=== PATIENT | female | born 1990 | race Caucasian/White ===

== ENCOUNTER 2022-01-13 09:14 | Emergency (ER) | payer MEDICAID, OTHER | END 2022-01-13 10:50 | disposition home or self-care (01) | LOC: CSHERS 09:14 | DX: R05.9 Cough, unspecified (principal); I10 Essential (primary) hypertension | CPT/HCPCS: 71045 ==

== ENCOUNTER 2022-01-19 18:00 | Inpatient (IN) | payer OTHER ==
[2022-01-20 05:29] VITALS: BMI 44.6
[2022-01-20] MEDS ORDERED: Lidocaine 1% (PF) 30 ML VIAL SC PRN (05:30)
[2022-01-20] MEDS ORDERED: Butorphanol Tartrate 1 MG/ML VIAL SLOW IVP PRN (05:30)
[2022-01-20] MEDS ORDERED: Ondansetron PF 4 MG/2 ML Vial IVP PRN ×3 (05:30→21:39)
[2022-01-20] MEDS ORDERED: Ibuprofen 800 MG TAB PO PRN (05:30)
[2022-01-20] MEDS ORDERED: Carboprost 250 MCG/ML AMP IM PRN (05:30)
[2022-01-20] MEDS ORDERED: Misoprostol 200 MCG TAB PR PRN (05:30)
[2022-01-20] MEDS ORDERED: Acetaminophen 500 MG TAB PO PRN (05:30)
[2022-01-20] MEDS ORDERED: Diphenoxylate HCl/Atropine Tablet PO PRN (05:30)
[2022-01-20] MEDS ORDERED: Promethazine HCl 25 MG/ML VIAL IM PRN ×3 (05:30→21:39)
[2022-01-20] MEDS ORDERED: hydrALAZINE 20 MG/ML VIAL SLOW IVP PRN ×2 (05:30→21:39)
[2022-01-20] MEDS ORDERED: HYDROcodone/Acetaminophen 5/325 mg Tablet PO PRN ×3 (05:30→21:39)
[2022-01-20] MEDS ORDERED: Methylergonovine 0.2 MG/ML VIAL IM PRN (05:30)
[2022-01-20] MEDS ORDERED: Misoprostol 100 MCG TAB ONE (05:55)
[2022-01-20 05:56] LABS: Hemoglobin 10.6 g/dL (12.0-15.5); Mean Corpuscular HGB CONC 32.6 g/dL (32.0-36.0); Mean Corpuscular Hemoglobin 26.9 pg (27.0-33.0); Mean Corpuscular Volume 82.5 fl (81.6-98.3); Mean Platelet Volume 12.2 fl (7.4-10.4); Platelet Count 177 10x3/uL (150-450); RBC Distribution Width 13.3 % (11.5-14.5); Red Blood Cell (RBC) Count 3.94 10x6/uL (3.90-5.03); White Blood Cell (WBC) Count 13.1 10x3/uL (3.5-10.5)
[2022-01-20] MEDS ORDERED: Misoprostol 100 MCG TAB VAG SCH (06:00)
[2022-01-20] MEDS ORDERED: NS w/ Oxytocin 30 units 500 ML IV SCH ×2 (06:00)
[2022-01-20] MEDS ORDERED: Lactated Ringer's 1,000 ML IV SCH (06:00)
[2022-01-20 06:40] LABS: HBSAg Index 0.22 S/CO (0-0.99); Hep B Surf Ag Non-Reactive S/CO (NonReactive)
[2022-01-20 06:41] LABS: Syphilis Antibody Nonreactive (Nonreactive); Syphilis Antibody Index 0.04 S/CO (<1.00 Non-Reactive)
[2022-01-20 06:41] LABS: SARS-CoV-2 NAA Rapid Test Not Detected (NotDetected)
[2022-01-20] MEDS ORDERED: Bupivacaine HCl 0.5%/Epinephrine 1:200,000/PF 30 ml Vial ONE (08:00)
[2022-01-20] MEDS ORDERED: Bupivacaine 0.25% HCL 30 ML VIAL ONE (08:00)
[2022-01-20] MEDS ORDERED: Fentanyl 2 mcg/Bup 0.1% Cadd 100 ML ONE (13:35)
[2022-01-20] MEDS ORDERED: Fentanyl 2 mcg/Bupivacaine 0.1% Cassette 100 ML EPIDURAL SCH (14:30)
[2022-01-20] MEDS ORDERED: ePHEDrine Sulfate 50 MG/10 ML VIAL SLOW IVP PRN (14:30)
[2022-01-20] MEDS ORDERED: Acetaminophen 325 MG TAB PO PRN (14:30)
[2022-01-20] MEDS ORDERED: diphenhydrAMINE 50 MG/ML VIAL IVP PRN (14:30)
[2022-01-20] MEDS ORDERED: Naloxone HCl 0.4 mg/ml Vial IVP PRN ×2 (14:30)
[2022-01-20] MEDS ORDERED: Moisturizing Cream (Eucerin) 113 GM JAR TOP PRN (14:30)
[2022-01-20] MEDS ORDERED: Communication Order-Pharmacy FS SCH (14:30)
[2022-01-20] MEDS ORDERED: Lactated Ringer's 500 ML IV PRN (14:38)
[2022-01-20 20:12] LABS: ALT (SGPT) 17 U/L (8-55); AST (SGOT) 18 U/L (5-34); Alkaline Phosphatase 168 U/L (40-110); Anion Gap 13 mmol/L (10-20); BUN (Urea Nitrogen) 10 mg/dL (7.0-18.7); Bilirubin, Total 0.5 mg/dL (0.2-1.2); Calc. Creatinine Clearance 263 mL/min (70-130); Calcium 8.8 mg/dL (7.8-10.44); Carbon Dioxide 19 mmol/L (22-29); Chloride 107 mmol/L (98-107); Estimated GFR 121; Glucose 87 mg/dL (70-105); Potassium 3.9 mmol/L (3.5-5.1); Sodium 135 mmol/L (136-145)
[2022-01-20] MEDS ORDERED: Boostrix 0.5 ML (Tdap) VIAL (>/=7 yrs of age) IM ONE (21:39)
[2022-01-20] MEDS ORDERED: Bisacodyl 10 MG SUPP PR PRN (21:39)
[2022-01-20] MEDS ORDERED: diphenhydrAMINE 25 MG CAP PO PRN (21:39)
[2022-01-20] MEDS ORDERED: Preparation H Ointment 28 GM TUBE PR PRN (21:39)
[2022-01-20] MEDS ORDERED: Milk Of Magnesia 30 ML UDCUP PO PRN (21:39)
[2022-01-20] MEDS ORDERED: Benzocaine-Menthol 82.5 ML CAN TOP PRN (21:39)
[2022-01-20] MEDS ORDERED: Lanolin Ointment 7 GM TUBE TOP PRN (21:39)
[2022-01-20] MEDS ORDERED: Docusate 100 MG CAP PO SCH (21:45)
[2022-01-20] MEDS: Ibuprofen 800 MG TAB PO SCH (22:03)
[2022-01-21] MEDS: Ibuprofen 800 MG TAB PO SCH ×3 (06:45→21:52)
[2022-01-21] MEDS: Ferrous Sulfate 325 MG TAB PO SCH ×2 (08:10→16:31)
[2022-01-21] MEDS: Docusate 100 MG CAP PO SCH ×2 (08:51→21:52)
[2022-01-21] MEDS: Prenatal Vitamin 1 TAB PO SCH (08:51)
[2022-01-22] MEDS: Ibuprofen 800 MG TAB PO SCH ×2 (06:13→13:59)
[2022-01-22] MEDS: Ferrous Sulfate 325 MG TAB PO SCH (08:20)
[2022-01-22] MEDS: Prenatal Vitamin 1 TAB PO SCH (10:14)
[2022-01-22] MEDS: Docusate 100 MG CAP PO SCH (10:14)
[2022-01-22 10:56] VITALS: BP 130/77; TEMP 98.2
== END 2022-01-22 15:20 | disposition home or self-care (01) | DRG 807 ==
LOC: CSHLD 01-20 04:56 → CSHPED 01-20 20:40
PROVIDERS: ADMIT Student in an Organized Health Care Education/Training Program; ATTEND Student in an Organized Health Care Education/Training Program
PROC: 10E0XZZ Delivery of Products of Conception, External Approach (ICD-10-PCS; principal; 2022-01-20)
PROC: 10907ZC Drainage of Amniotic Fluid, Therapeutic from Products of Conception, Via Natural or Artificial Opening (ICD-10-PCS; 2022-01-20)
DX: O13.4 Gestational [pregnancy-induced] hypertension without significant proteinuria, complicating childbirth (principal); Z37.0 Single live birth; Z3A.38 38 weeks gestation of pregnancy; Z20.822 Contact with and (suspected) exposure to COVID-19; E66.9 Obesity, unspecified; O99.214 Obesity complicating childbirth; Z79.82 Long term (current) use of aspirin; Z90.49 Acquired absence of other specified parts of digestive tract
CPT/HCPCS: 36415; 51702; 80053; 85027; 86780; 86850; 86900; 86901; 87340; J7120; S0020; U0002